=== PATIENT | male | born 1930 | race Caucasian/White ===

== ENCOUNTER 2017-02-27 15:54 | Emergency (ER) | payer MEDICARE, OTHER ==
[~2017-02-27] VITALS: Ht 170.2 cm; Wt 80.0 kg
[2017-02-27 16:03] VITALS: Ht 170.2 cm; Wt 80.0 kg
[2017-02-27] MEDS ORDERED: ACET325T45 GTB (17:15)
[2017-02-27] MEDS ORDERED: ACET-141 GTB (17:15)
[2017-02-27] MEDS ORDERED: ALBU2.5V3 NEB (17:18)
[2017-02-27] MEDS ORDERED: AMIO200T2 GTB (17:20)
[2017-02-27] MEDS ORDERED: ATOR10TA65 GTB (17:20)
[2017-02-27] MEDS ORDERED: CLON-379 GTB (17:23)
[2017-02-27 17:24] LABS: ADD SCAN DIFF NO
[2017-02-27] MEDS ORDERED: CRAN425C GTB (17:24)
[2017-02-27] MEDS ORDERED: BISA10SU75 PR (17:25)
[2017-02-27] MEDS ORDERED: FERROUS SULFATE GTB (17:28)
[2017-02-27] MEDS ORDERED: NA P230E RC (17:29)
[2017-02-27] MEDS ORDERED: LEVE500T8 GTB (17:30)
[2017-02-27 17:32] LABS: BASOPHILS % 0.4 % (0.0-2.0); EOSINOPHILS # 0.7 10^3/ul (0.0-0.5); EOSINOPHILS % 7.2 % (0.0-7.0); HEMATOCRIT 30.8 % (42.0-52.0); HEMOGLOBIN 9.8 g/dl (14.0-18.0); LYMPHOCYTES # 2.3 10^3/ul (0.8-2.9); LYMPHOCYTES % 23.7 % (15.0-51.0); MEAN CORPUSCULAR HEMOGLOBIN 28.8 pg (29.0-33.0); MEAN CORPUSCULAR HGB CONC 31.8 g/dl (32.0-37.0); MEAN CORPUSCULAR VOLUME 90.6 fl (82.0-101.0); MEAN PLATELET VOLUME 10.7 fl (7.4-10.4); MONOCYTE # 0.8 10^3/ul (0.3-0.9); MONOCYTES % 8.2 % (0.0-11.0); NEUTROPHIL # 5.7 10^3/ul (1.6-7.5); NEUTROPHILS % 59.5 % (39.0-77.0); PLATELET COUNT 241 10^3/UL (140-415); RED CELL DISTRIBUTION WIDTH 15.9 % (11.5-14.5); WHITE BLOOD COUNT 9.6 10^3/ul (4.8-10.8)
[2017-02-27] MEDS ORDERED: METO-448 GTB (17:32)
[2017-02-27] MEDS ORDERED: MAGN400O4 GTB (17:36)
[2017-02-27] MEDS ORDERED: MULT-105 GTB (17:38)
[2017-02-27] MEDS ORDERED: MEMA10TA16 GTB (17:40)
[2017-02-27] MEDS ORDERED: PANT40SU GTB (17:42)
[2017-02-27] MEDS ORDERED: ASC500 GTB (17:43)
[2017-02-27 17:44] LABS: AADO2 Arterial 173.4 mmHg (7.0-24.0); Allen Test ACCEPTAB; Arterial Base Excess 3.2 mmol/L (-3.0-3); Arterial COHb 0.3 % (0.0-3.0); Arterial Fraction of Oxyhgb 93.7 % (93.0-99.0); Arterial HCO3 26.4 mmol/L (22.0-26.0); Arterial MetHb 0.3 % (0.0-1.5); Arterial Total Hemglobin 10.1 g/dl (12.0-18.0); MODE VENT - AC
[2017-02-27] MEDS ORDERED: ZINC220T GTB (17:44)
[2017-02-27 17:55] LABS: ALANINE AMINOTRANSFERASE 85 IU/L (13-69); ALBUMIN 3.6 g/dl (3.3-4.9); ALKALINE PHOSPHATASE 109 IU/L (42-121); ANION GAP 16 (8-16); ASPARTATE AMINO TRANSFERASE 58 IU/L (15-46); BILIRUBIN,INDIRECT 0.2 mg/dl (0-1.1); BILIRUBIN,TOTAL 0.2 mg/dl (0.2-1.3); BLOOD UREA NITROGEN 22 mg/dl (7-20); CALCIUM 8.5 mg/dl (8.4-10.2); CARBON DIOXIDE 32 mmol/L (21-31); CHLORIDE 93 mmol/L (97-110); CREATININE 0.64 mg/dl (0.61-1.24); GLUCOSE 94 mg/dl (70-220); SODIUM 137 mmol/L (135-144); TOTAL PROTEIN 7.2 g/dl (6.1-8.1)
--- NOTE | 2017-02-27 18:35 | RADRPT ---
PROCEDURE: XR Chest. CLINICAL INDICATION: 86-year-old male with suspected deep vein thrombosis. TECHNIQUE: Single frontal view of the chest was obtained. COMPARISON: None FINDINGS: A tracheostomy tube is positioned near T5-6 proximally 7.7 cm superior to the natalio. There are deg enerative osteophytes in the thoracic spine. The bones are rarefied. The heart is mildly enlarged. The cardiomediastinal silhouette and hilar structures are normal. The pulmonary vasculature is nor mal. There are vascular calcifications in the aortic arch. There are bibasilar infiltrates. There is a right pleural effusion. The left costophrenic angle is of the field of view and not evaluated. No pulmonary nodule is identified. IMPRESSION: 1. Cardiomegaly with a right pleural effusion and bibasilar infiltrates. 2. A left pleural effusion is not excluded. The left costophrenic angle is of the field of view. 3. Cardiomegaly. 4. A tracheostomy tube is well-positioned. There are 5 atherosclerosis with ectasia of the thoraci c aorta. RPTAT:AAJJ Physician Laurence Date Time Electronically viewed and signed by Physician Laurence on 02/27/2017 18:34 ANISHA/
[2017-02-27 18:50] LABS: TROPONIN-I < 0.012 ng/ml (0.00-0.12)
[2017-02-27 19:49] VITALS: BP 153/85; PULSE 76
--- NOTE | 2017-02-27 19:55 | ERA ---
ER Documentation Chief Complaint Date/Time DATE: 02/27/17 TIME: 19:46 Chief Complaint SENT FROM SNF FOR EVAL OF BILAT ARM SWELLING HPI 86-year-old man brought in by EMS from [facility] to rule out deep vein thrombosis of the upper extremities. He is chronically encephalopathic, mechanical ventilator dependent, and in a chronic vegetative state bedbound. Seems recent blood cultures were positive, and nurses at the facility requested PICC line placement. Patient has had no fevers or chills, no vomiting or diarrhea. HPI supplemented by reviewing past medical history, reviewing [facility] records, later speaking to PMD, speaking to EMS, and nursing staff. ROS All systems reviewed and are negative except as per history of present illness. Medications Home Meds Reported Medications Zinc Sulfate* (Zinc Sulfate*) 220 Mg Tablet, 220 MG GTB DAILY, TAB 02/27/17 Ascorbic Acid (Vitamin C) 500 Mg Tab, 500 MG GTB DAILY, TAB 02/27/17 Pantoprazole Sodium (Protonix) 40 Mg Granpkt.dr, 40 MG GTB QAM 02/27/17 Memantine* (Namenda*) 10 Mg Tablet, 10 MG GTB DAILY, #30 TAB 02/27/17 Multivitamin with Minerals (Multivitamins with Minerals) 1 Each Tablet, 1 EACH GTB DAILY, TAB STOP DATE-05/03/17 02/27/17 Magnesium Hydroxide* (Milk Of Magnesia*) 400 Mg/5 Ml Oral.susp, 30 ML GTB DAILY , ML FOR NO BOWEL OR SMALL BOWEL-X2DAYS 02/27/17 Metoprolol Tartrate* (Lopressor*) 25 Mg Tab, 25 MG GTB BID, #60 TAB HOLD IF SBP LESS THAN 100 OR HR LESS THAN 60 02/27/17 Levetiracetam* (Levetiracetam*) 500 Mg Tablet, 500 MG GTB BID, TAB 02/27/17 Na Phos,M-B/Na Phos,Di-Ba (Fleet Enema Extra) 230 Ml Enema, 230 ML RC Q4D Y for PRN, ENEMA 02/27/17 [Ferrous Sulfate] No Conflict Check, 7.5 ML GTB DAILY START DATE-02/11/17 STOP DATE=03/02/17 02/27/17 Bisacodyl* (Bisacodyl*) 10 Mg Supp, 10 MG DE Q24H Y for PRN, SUPP 02/27/17 Cranberry Extract (Cranberry) 425 Mg Capsule, 425 MG GTB DAILY, CAP 02/27/17 Clonidine Hcl* (Clonidine Hcl*) 0.1 Mg Tab, 0.1 MG GTB Q8, TAB FOR HTN SBP>160mmHg 02/27/17 Atorvastatin Calcium (Atorvastatin Calcium) 10 Mg Tablet, 10 MG GTB QHS, #30 TAB 02/27/17 Amiodarone Hcl* (Amiodarone Hcl*) 200 Mg Tablet, 200 MG GTB DAILY, #30 TAB HOLD IF SBP LESS THAN 100mmHg OR HR LESS THAN 60 BPM 02/27/17 Albuterol Sulfate* (Albuterol Sulfate* Neb) 0.083%-3 Ml Neb, 2.5 MG NEB Q3H Y for WHEEZING AND SOB, #30 VIAL WITH ATROVEN 0.5MG UD 02/27/17 Acetaminophen* (Acetaminophen*) 500 MG Extra Strength Tablet, 1000 MG GTB Q8H Y for PAIN 4-6/10, TAB 02/27/17 Acetaminophen* (Acetaminophen*) 325 Mg Tablet, 650 MG GTB Q6H Y for MILD PAIN LEVEL 1-3, #30 TAB FOR TEMP>101F 02/27/17 Allergies Allergies: Coded Allergies: Milk Containing Products (Unverified Allergy, Unknown, 02/27/17) Penicillins (Unverified Allergy, Unknown, 02/27/17) milk (Unverified Allergy, Unknown, 02/27/17) PMhx/Soc Chronic vegetative state, chronic respiratory failure on mechanical ventilator, hypertension, ischemic cardiomyopathy, hyperlipidemia, diabetes mellitus, Hx Respiratory Disorders: Yes (CHRONIC RESP FAILURE ) Hx Cardiac Disorders: Yes (CARDIOMEGALY , HYPERLIPIDEMIA , HTN) Hx Psychiatric Problems: Yes (AN XIETY, SCHIZPHRENIA ) Hx Miscellaneous Medical Probl: Yes (DEMENTIA , ESRF, 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) Hx Alcohol Use: No Hx Substance Use: No Hx Tobacco Use: No Smoking Status: Unknown if ever smoked FmHx Family History: No diabetes Physical Exam Vitals Vital Signs Date Time Temp Pulse Resp B/P Pulse Ox O2 Delivery O2 Flow Rate FiO2 02/27/17 21:45 82 16 100 40 02/27/17 19:55 77 16 100 40 02/27/17 19:49 76 16 153/85 100 Mechanical Ventilator 02/27/17 18:44 76 16 121/72 99 Mechanical Ventilator 02/27/17 17:53 79 16 117/75 99 Mechanical Ventilator 02/27/17 17:23 80 16 98 40 02/27/17 16:03 97.9 84 19 116/74 100 Physical Exam GENERAL: Elderly debilitated man, unresponsive, eyes closed, on mechanical ventilator, afebrile HEENT: Moist mucous membranes, pink conjunctiva, no cervical spine tenderness or step-off deformities, tracheostomy tube in place NEURO: Pupils minimally reactive, nonverbal, no facial asymmetry, CARDIAC: Regular rate and rhythm, no murmurs rubs or gallops LUNGS: Clear bilaterally no wheezing crackles or stridor ABDOMEN: Soft nontender, no guarding, no rigidity, no rebound, no psoas sign no obturator sign. Normoactive bowel sounds SKIN: Warm and dry to touch, no abrasions, contusions, or hematomas, no lacerations, no ecchymosis, no target lesions, and without ulcers EXTREMITIES: Diffuse bilateral upper extremity 3+ pitting edema, appears to be dependent edema, calves bilaterally symmetrical, no Homans sign, no popliteal cords sign PSYCH: Unable to assess Result Diagram: 02/27/17 1715 02/27/17 1715 Results 24 hrs Laboratory Tests Test 02/27/17 17:15 02/27/17 17:24 White Blood Count 9.610^3/ul Red Blood Count 3.4010^6/ul Hemoglobin 9.8g/dl Hematocrit 30.8% Mean Corpuscular Volume 90.6fl Mean Corpuscular Hemoglobin 28.8pg Mean Corpuscular Hemoglobin Concent 31.8g/dl Red Cell Distribution Width 15.9% Platelet Count 19149^3/UL Mean Platelet Volume 10.7fl Neutrophils % 59.5% Lymphocytes % 23.7% Monocytes % 8.2% Eosinophils % 7.2% Basophils % 0.4% Nucleated Red Blood Cells % 0.0/100WBC Neutrophils # 5.710^3/ul Lymphocytes # 2.310^3/ul Monocytes # 0.810^3/ul Eosinophils # 0.710^3/ul Basophils # 0.010^3/ul Nucleated Red Blood Cells # 0.010^3/ul Sodium Level 137mmol/L Potassium Level 4.0mmol/L Chloride Level 93mmol/L Carbon Dioxide Level 32mmol/L Anion Gap 16 Blood Urea Nitrogen 22mg/dl Creatinine 0.64mg/dl Glucose Level 94mg/dl Calcium Level 8.5mg/dl Total Bilirubin 0.2mg/dl Direct Bilirubin 0.00mg/dl Indirect Bilirubin 0.2mg/dl Aspartate Amino Transf (AST/SGOT) 58IU/L Alanine Aminotransferase (ALT/SGPT) 85IU/L Alkaline Phosphatase 109IU/L Troponin I < 0.012ng/ml Total Protein 7.2g/dl Albumin 3.6g/dl Globulin 3.60g/dl Albumin/Globulin Ratio 1.00 Lipase 534U/L Blood Gas Specimen Source Blood arterial Arterial Blood Date Drawn 02/27/2017 5:30:20 PM Arterial Blood pH (Temp corrected) 7.498 Arterial Blood pCO2 (Temp correct) 34.8mmhg Arterial Blood pO2 (Temp corrected) 71.8mmHG Arterial Blood HCO3 26.4mmol/L Arterial Blood Base Excess 3.2mmol/L Arterial Blood Oxygen Saturation 94.3mmHG Mello Test ACCEPTAB Arterial Blood Gas Puncture Site Right Radial Arterial Blood Carboxyhemoglobin 0.3% Arterial Blood Methemoglobin 0.3% Blood Gas A-a O2 Differential 173.4mmHg Oxyhemoglobin Percent 93.7% Total Hemoglobin 10.1g/dl Blood Gas Temperature 37.0C Blood Gas Respiration Rate 16.0 Blood Gas Actual Respiration Rate 16 Blood Gas Modality VENT - AC FiO2 40.0% Blood Gas Tidal Volume 700.0mL Blood Gas Low PEEP Setting 5.0cmH2O Blood Gas Notified Whom M.D. Blood Gas Notified Time 02/27/2017 5:43:46 PM Procedures/MDM Blood and urine cultures were ordered results are pending I will follow-up. Patient was afebrile. EKG performed, read by me revealed a normal sinus rhythm at 81 bpm with a first- degree atrial ventricular block and a DE interval at 224 ms, normal axis, no concerning ST elevations or depressions noted, right ventricular conduction delay with a QRS duration 102 ms One view chest x-ray performed, read by me there is atelectatic changes bilaterally and a tracheostomy tube in place, no acute infiltrates, no pneumothorax, no pulmonary edema. Bilateral upper extremity Doppler ultrasound was performed there is thrombosis of the right forearm veins including the cephalic but no deep vein thrombosis of the upper arms noted. Please refer to radiologist dictation for full report. CBC revealed mild anemia with a hemoglobin of 9.8, electrolytes unremarkable, liver function tests were slightly elevated with a lipase of 534, troponin negative. ABG on mechanical ventilator revealed pH of 7.5, PCO2 35, PO2 70. Chronic respiratory alkalosis otherwise unremarkable. I spoke to Dr. Warner regarding the patient's presentation, symptomatology , lab values, imaging studies, and his [facility] records. Dr. Warner agreed that at this time we have no indication for admission, he has no concerning deep vein thrombosis of the upper extremities, he is asymptomatic and has no signs of infection, and can be managed as an outpatient. Peripheral lines can be placed in the [facility] and at this time PICC line insertion is not indicated. He agreed to follow-up with the patient as well. Differential diagnoses considered, included but not limited to acute coronary syndrome, pulmonary embolism, aortic dissection, abdominal aortic aneurysm, sepsis, stroke, meningitis, encephalitis, pneumonia, appendicitis, cholecystitis , bowel obstruction, pyelonephritis, nephrolithiasis, cystitis, as well as metabolic, hematologic, and electrolyte abnormalities. As well as abscess, cellulitis, fractures, and dislocations. Patient appears to be at his baseline and he has normal vital signs. Discharge instructions provided to the [facility]. Disclaimer: Inadvertent spelling and grammatical errors are likely due to EHR/ dictation software use and do not reflect on the overall quality of patient care. Also, please note that the electronic time recorded on this note does not necessarily reflect the actual time of the patient encounter. Departure Diagnosis: Primary Impression: Dependent edema Additional Impression: Respiratory failure Qualified Code: J96.21 - Acute on chronic respiratory failure with hypoxia and hypercapnia Condition: Good CHRIS CAMACHO MD Feb 27, 2017 19:54
[2017-02-27 21:45] VITALS: RESP 16
--- NOTE | 2017-02-28 09:15 | RADRPT ---
PROCEDURE: US bilateral upper extremity veins. CLINICAL INDICATION: Bilateral upper extremity pain and swelling. TECHNIQUE: Multiple longitudinal and transverse images of the bilateral upper extremity venous gaurav e was obtained with caro scale and color Doppler imaging. COMPARISON: None available FINDINGS: The right internal jugular, subclavian, axillary, brachial, radial, and ulnar veins are patent with normal flow and compressibility. The right upper arm basilic vein is thrombosed with lack of flow a nd lack of compressibility. The right forearm cephalic vein is also thrombosed with lack of flow an d lack of compressibility. The left internal jugular, subclavian, axillary, brachial, basilic, cephalic, radial, and ulnar vein s are patent. There is normal flow with augmentation and compressibility throughout. There is no th rombus or occlusion. IMPRESSION: 1. Thrombosis of the right upper arm basilic vein and right forearm cephalic vein. 2. Otherwise normal venous system of both upper extremities. RPTAT: QQ .Todd Saldivar MD, MD Date Time Electronically viewed and signed by .Todd Saldivar MD, on 03/02/2017 08:33 .R/
== END 2017-02-27 23:40 | disposition home or self-care (01) ==
LOC: E/R 15:54
DX: R60.0 Localized edema (principal); J96.21 Acute and chronic respiratory failure with hypoxia; E11.9 Type 2 diabetes mellitus without complications; I10 Essential (primary) hypertension
CPT/HCPCS: 36415; 36600; 71010; 80053; 82803; 83690; 84484; 85025; 87040; 93005; 93970; 94002